=== PATIENT | male | born 1980 | race Caucasian/White ===

== ENCOUNTER 2016-04-27 09:04 | Emergency (ER) | payer OTHER | END 2016-04-27 14:08 | disposition home or self-care (01) | LOC: ER 09:04 | DX: S29.011A Strain of muscle and tendon of front wall of thorax, initial encounter (principal); S39.011A Strain of muscle, fascia and tendon of abdomen, initial encounter; R10.11 Right upper quadrant pain; Z79.899 Other long term (current) drug therapy; F17.290 Nicotine dependence, other tobacco product, uncomplicated | CPT/HCPCS: 36415; 76705; 80053; 81003; 83690; 85025 ==